=== PATIENT | male | born 2005 | race Caucasian/White ===

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

== ENCOUNTER 2023-06-17 10:31 | Emergency (ER) | payer MEDICAID, SELFPAY ==
[2023-06-17 10:32] VITALS: BP 125/100; PULSE 73; RESP 16; TEMP 36.1; O2SAT 98; BMI 37.7
[2023-06-17 11:05] VITALS: BMI 38.5
--- NOTE | 2023-06-17 11:05 | EX.ED.DYSGE1 ---
HPI History of Present Illness Chief Complaint: Neuro S/Sx Detail of Chief Complaint: Headache, vision change Informant: patient Narrative Narrative: Patient presents secondary to headache and left eye vision change. Patient states he has been having rather frequent headaches over the past month or so. He has had intermittent neuro symptoms associated with his headaches. This morning at work he developed a headache with loss of vision from his left eye that lasted about 25 minutes. Patient states that everything just looked blurry in the left eye and he could not make anything out. Symptoms are currently improving, but states he still has blurry vision over the upper portion of his left eye vision. He has no eye pain. No recent head injury. [facility] Medical History Asthma Internal derangement of left shoulder Left shoulder pain Seasonal allergies Home Medications cetirizine 10 mg tablet (24Hour Allergy) 10 mg PO DAILY PRN allergy symptoms 06/17/23 [History Last Taken Unknown] Allergy/AdvReac Type Severity Reaction Status Date / Time house dust Allergy unknown Verified 09/09/22 14:46 weed pollen Allergy unknown Verified 09/09/22 14:46 Family History Other Cancer Diabetes Heart disease Hypertension Surgical History H/O right knee surgery Hx of tympanostomy tubes Social History Smoking Status: Never smoker alcohol intake: never ROS ROS ED Constitutional Constitutional ED: Denies chills or fever(s) Eyes Eyes: Reports change in vision; Denies discharge from eye(s) ENT ENT ED: Denies discharge from eye(s), rhinorrhea or sore throat Cardiovascular Cardiovascular: Denies chest pain or palpitations Respiratory/Chest Respiratory/Chest: Denies cough or dyspnea Gastrointestinal Gastrointestinal: Denies abdominal pain, nausea or vomiting Musculoskeletal Musculoskeletal: Denies back pain or extremity pain Integumentary Denies Abrasions or rash Neurologic Neurologic: Reports headache(s); Denies weakness Psychiatric Psychiatric: Denies anxiety or depression Allergic/Immunologic Allergic/Immunologic ED: Denies lip swelling or urticaria EXAM Physical Exam Const Vital Signs: 06/17/23 10:32 Temperature 96.9 F L Temperature Source Temporal Pulse Rate 73 Respiratory Rate 16 Blood Pressure 125/100 H Blood Pressure Mean 108 Pulse Ox 98 Oxygen Delivery Method Room Air Positive well nourished and well developed General Appearance ED: well developed HEENT Reports moist mucous membranes Eyes PERRL and EOMs intact bilaterally Chest Wall inspection of chest normal and palpation of chest normal Resp normal respiratory effort and clear to auscultation bilaterally Cardio regular rate and regular rhythm GI non-tender Palpation: soft Extremity normal to inspection Neuro oriented x3 and no sensory deficits noted Motor Exam: strength 5/5 throughout Psych mental status grossly normal Skin no rashes or lesions noted MDM MDM MDM Narrative Medical decision making narrative: Patient given IV fluids and Toradol. Labwork obtained to evaluate for leukocytosis, anemia, and electrolyte derangement. CTA of the head and neck obtained to evaluate for abnormality including aneurysm History & Record Review Discussion w/independent historian: Patient Lab Data Attestation: I reviewed the patient's lab results. Labs: Laboratory Results - last 24 hr 06/17/23 11:30 WBC 8.2 RBC 4.56 L Hgb 13.9 Hct 39.5 L MCV 86.6 MCH 30.5 MCHC 35.2 RDW Std Deviation 36.7 RDW Coeff of Rita 11.6 Plt Count 199 MPV 9.8 Immature Gran % (Auto) 0.200 Neut % (Auto) 49.5 Lymph % (Auto) 32.0 [place] % (Auto) 8.8 Eos % (Auto) 8.3 H Baso % (Auto) 1.2 H Absolute Neuts (auto) 4.1 Absolute Lymphs (auto) 2.63 Nucleated RBC % 0 Sodium 139 Potassium 3.9 Chloride 109 H Carbon Dioxide 26.0 Anion Gap 4 L BUN 21 H Creatinine 0.90 Estim Creat Clear Calc 126.67 Est GFR (MDRD) Af Amer 138 Est GFR (MDRD) Non-Af 114 BUN/Creatinine Ratio 23.3 H Glucose 94 Calcium 8.9 Radiography Diagnostic Testing: Clinical Impression(s) from Imaging Studies Head/Neck CTA 06/17/23 11:45 IMPRESSION: 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 Electronically Signed: Dakotah Wallace MD at 12:17 EDT , Treatment and Re-Evaluation :: I feel patient's symptoms are most consistent with atypical migraine. As he did drive himself to the ER today he was given Toradol and IV fluids. CBC reveals normal white count 8.2 with a hemoglobin of 13.9. Normal differential. Chemistry studies are unremarkable. Glucose is normal at 94. CTA of the head and neck is obtained. 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 No intracranial abnormalities are noted. Specifically, no evidence of aneurysm. On repeat evaluation patient reports his headache is resolved. He still has only a few small spots of blurry vision, but overall vision is improving as well. Patient will be referred to neurology for follow-up as I do feel that this is migraine in origin. Return instructions provided Discharge Plan Triage Chief Complaint: Neuro S/Sx Other Complaint: Eye Problem ED Provider: Shivani Lopez Dx/Rx/DC Orders Clinical Impression: Migraine Instructions: Preventing Migraine Headaches ..., ED, Migraine (Classical) Prescriptions: No Action cetirizine [24Hour Allergy] 10 mg tablet 10 mg PO DAILY PRN (Reason: allergy symptoms) Primary Care Provider: Olu Lemon NP Referrals: Tyler Han MD [Non-Staff -Ordering Privileges] - 1-2 Weeks Olu Lemon NP, ASSOCIATE PROFESSOR OF MUSICOLOGY-C [Primary Care Provider] - Disposition Disposition: Home, Self Care
[2023-06-17] MEDS: 0.9% Normal Saline (1000mL) 1,000 ML 1000 ML IV (11:33)
[2023-06-17] MEDS: Ketorolac 30 MG/ML Syringe IV (11:33)
[2023-06-17 11:45] LABS: Absolute Lymphocyte Count 2.63 X10^3/uL (0.83-4.51); Absolute Neutrophil Count 4.1 X10^3/uL (2.0-7.7); Basophil% 1.2 % (0-1); Eosinophil# 0.68 X10^3/uL; Eosinophils% 8.3 % (0-5); Hematocrit 39.5 % (40-54); Hemoglobin 13.9 g/dL (13.0-16.5); Lymphocyte # 2.63 X10^3/ul (0.83-4.51); Mean Corp Hgb Conc 35.2 g/dL (32-36); Mean Corpuscular Hgb 30.5 pg (27.0-32.0); Mean Corpuscular Volume 86.6 fL (80-94); Mean Platelet Vol. 9.8 fl (6.2-12.0); Monocyte# 0.72 X10^3/uL; Monocyte% 8.8 % (0-10); NRBC Flagged by Analyzer 0 % (0-5); Neutrophil # 4.06 X10^3/uL (2.7-7.7); Neutrophil % 49.5 % (47-70); Platelet Count 199 K/mm3 (150-450); RBC Distribution Width CV 11.6 % (11.6-14.6); RBC Distribution Width SD 36.7 fl (35.1-43.9); Red Blood Count 4.56 M/mm3 (4.6-6.2); White Blood Count 8.2 K/mm3 (4.4-11.0)
--- NOTE | 2023-06-17 11:45 | CT_ITS ---
STUDY: CTA HEAD AND NECK WITH CONTRAST REASON FOR EXAM: Male, 18 years old. Headache, vision change RADIATION DOSAGE (If Supplied By Facility): CTDIvol = ( 30.04 ) mGy, DLP = ( 1746.58 ) mGycm TECHNIQUE: CT angiography was performed with a multi-detector CT scanner. Data acquisition was obtained from the skull base through the vertex following intravenous administration of IV 100mL [id number]-370. MIP images were reconstructed from the axial data set. Post-processing of the angiographic images was performed, with multiplanar reformation and 3D reconstruction. Individualized dose optimization techniques were used for this CT. COMPARISON: No relevant priors. FINDINGS: Normal bilateral petrous carotid arteries. Normal right cavernous carotid artery with a normal supraclinoid bifurcation. Normal left cavernous carotid artery with a normal supraclinoid bifurcation. Normal right A1 segments of the anterior cerebral artery. Normal left A1 segments of the anterior cerebral artery. Normal intact anterior communicating artery (ACOM). Normal bilateral A2 segments of the anterior cerebral arteries. Normal right M1 and M2 segments of the middle cerebral arteries, with a normal M1 bifurcation. Normal left M1 and M2 segments of the middle cerebral arteries, with a normal M1 bifurcation. Normal right posterior communicating artery (PCOM). Normal left posterior communicating artery (PCOM). Normal bilateral vertebral arteries. Normal basilar artery with a normal basilar bifurcation. The visualized bilateral superior cerebellar (SCA) arteries are normal. Normal bilateral P1, P2 and visualized P3 segments of the posterior cerebral arteries. There is no demonstrated aneurysm of the [place] of [place]. There is no demonstrated abnormality of the visualized brain. AORTIC ARCH: Right-sided aortic arch with the right sided descending thoracic aorta. 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 Normal origins of the brachiocephalic, left common carotid, and left subclavian arteries. RIGHT CAROTID ARTERIES: Normal right common carotid artery (CCA). Normal right common carotid bulb. Normal origin of the right internal carotid (ICA) artery without a hemodynamically significant stenosis. Normal visualized cervical portion of the right internal carotid artery. Normal origin of the right external carotid artery (ECA). LEFT CAROTID ARTERIES: Normal left common carotid artery (CCA). Normal left common carotid bulb. Normal origin of the left internal carotid (ICA) artery without a hemodynamically significant stenosis. Normal visualized cervical portion of the left internal carotid artery. Normal origin of the left external carotid artery (ECA). VERTEBRAL ARTERIES: There is enhancement within the bilateral vertebral arteries with a small left vertebral artery, and a dominant right vertebral artery. 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 Electronically Signed: Dakotah Wallace MD at 12:17 EDT ,
[2023-06-17 11:56] LABS: Anion Gap 4 (5-15); BUN 21 mg/dL (7-18); BUN/Creat Ratio 23.3 RATIO (10-20); Calcium,Total 8.9 mg/dL (8.5-10.1); Chloride 109 mmol/L (98-107); EST Glomerular Filtration Rate 114 mL/min (>60); Est Glom Filt Rate - Afr Amer 138 mL/min (>60); Estimated Creatinine Clearance 126.67 ml/min; Glucose 94 mg/dL (74-106); Potassium 3.9 mmol/L (3.5-5.1); Sodium Level 139 mmol/L (136-145)
[2023-06-17 13:03] VITALS: PULSE 86; O2SAT 99
== END 2023-06-17 13:07 | disposition home or self-care (01) ==
PROVIDERS: Emergency Provider Emergency Medicine; PCP Nurse Practitioner; Visit Provider Emergency Medicine
DX: G43.909 Migraine, unspecified, not intractable, without status migrainosus (principal)
CPT/HCPCS: 70496; 70498; 80048; 85025; 96361; 96374; 99283; J7030; Q9967; A4216

== ENCOUNTER 2023-06-20 21:54 | Emergency (ER) | payer MEDICAID, SELFPAY ==
[2023-06-20 21:55] VITALS: BP 131/74; PULSE 88; RESP 18; TEMP 36.6; O2SAT 97; BMI 37.0
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
--- NOTE | 2023-06-20 22:17 | ED.VIS.LOWEX ---
HPI History of Present Illness Chief Complaint: Lower Extremity Injury Detail of Chief Complaint: Since with twisting mechanism injury right knee. Informant: patient Occured/Mechanism Mechanism/Context: Yes other see comment below Comment: And mechanism of injury. [place] something pop/tear Onset/Context/Timing Onset: Hours (Prior to presentation) Context: Sudden Onset Timing: Continuous Quality of Pain: Dull and Aching Location: Medial right knee Current Severity: Mild Maximum Severity: Severe Worsened by: During Relieved by: Flexion extension Associated Symptoms Associated Symptoms: Negative for Parasthesia, Weakness or Loss of Funtion (Difficulty bearing weight.) Narrative Narrative: Is a 18-year-old male who underwent ACL and PCL repair by Dr. Jennifer Mosquera. He reports pain with weightbearing and movement. There is no history of direct trauma. The knee is not any more swollen than normal. States the swelling above the patella has been present since surgery. He has no other complaints. Tetanus Immunization: 5-10 years Prior similar symptoms: Yes Recent Illness/Hospitalization: No PFSH PFSH Medical History Asthma Internal derangement of left shoulder Left shoulder pain Seasonal allergies Home Medications cetirizine 10 mg tablet (24Hour Allergy) 10 mg PO DAILY PRN allergy symptoms 06/17/23 [History Last Taken Unknown] hydrocodone-acetaminophen 5-325mg 5mg-325mg 1 tab PO Q6H PRN PRN Pain 3 days #10 TABLETS 06/20/23 [Rx Last Taken Unknown] Allergy/AdvReac Type Severity Reaction Status Date / Time house dust Allergy unknown Verified 06/20/23 21:57 weed pollen Allergy unknown Verified 06/20/23 21:57 Family History Other Cancer Diabetes Heart disease Hypertension Surgical History H/O right knee surgery Hx of tympanostomy tubes Social History Smoking Status: Never smoker alcohol intake: never ROS ROS ED Constitutional Constitutional ED: Denies chills, fever(s), subjective, sweats or weight loss Musculoskeletal Musculoskeletal: Denies arthralgias, back pain, myalgias or neck pain Integumentary Denies rash Neurologic Neurologic: Denies paresthesias or weakness Endocrine Endocrinology: Denies polydipsia, polyphagia or polyuria Hematologic/Lymphatic Hematologic/Lymphatic: Denies easy bleeding or easy bruising EXAM Physical Exam Const Vital Signs: 06/20/23 21:55 Temperature 97.8 F Temperature Source Temporal Pulse Rate 88 Respiratory Rate 18 Blood Pressure 131/74 H Blood Pressure Mean 93 Pulse Ox 97 Oxygen Delivery Method Room Air Positive well nourished, well developed and obese General Appearance ED: well developed and NAD Nutritional Appearance: obese HEENT Reports moist mucous membranes normocephalic and atraumatic Eyes PERRL Eyes Narrative: Proximal muscles are intact. Neck full ROM and supple Chest Wall Negative for inspection of chest normal or palpation of chest normal Extremity full ROM; Negative for normal to inspection Extremity Narrative: To extend to 180 degrees and flex to 100 before having discomfort. There is swelling above the right patella. There is a scar noted. The scar is well-healed. Patella is not ballotable. There is no effusion. There is no laxity varus valgus stress testing. Sherri's test was negative. Modified Elver's test was negative. There is no pain the patient or fullness in the popliteal fossa. There is no joint line tenderness. Neuro oriented x3, CN's II-XII intact bilaterally and moves all extremities Sensorium / Orientation: alert Psych mental status grossly normal Skin no wounds Lesions: no lesions Rashes: no rashes MDM MDM MDM Narrative Medical decision making narrative: Was obtained per nurse protocol. Differential is medial collateral ligament strain, medial meniscus injury, ACL injury. Doubt ACL since there is no obvious effusion at this time. Radiography Chest X-Ray - ED: Read by ED Physician (Review x-ray of the knee reveals no acute process. Hardware noted secondary to probable prior ACL injury. There is no effusion. There is no fracture. There is no subluxation. This is independently reviewed interpreted by me at [id number]) Treatment and Re-Evaluation Narrative: Was informed to apply ice 6-10 times a day. Since he is diabetic was treated with opiate analgesia. He will follow-up with his orthopedic surgeon who is affiliated with [facility] Discharge Plan Triage Chief Complaint: Lower Extremity Injury ED Provider: Alex Jaquez Dx/Rx/DC Orders Clinical Impression: Other tear of medial meniscus, current injury, right knee, initial encounter, Pain of right knee after injury Instructions: ED Meniscal Injury Knee Poss Prescriptions: New hydrocodone-acetaminophen [hydrocodone-acetaminophen] 5-325 mg tablet 1 tab PO Q6H PRN PRN (Reason: Pain) 3 Days Qty: 10 0RF No Action cetirizine [24Hour Allergy] 10 mg tablet 10 mg PO DAILY PRN (Reason: allergy symptoms) Primary Care Provider: Care Physician,No Primary Referrals: Jennifer Mosquera DO [Non-Staff] - 5-7 Days Olu Lemon NP, [employer]INE [employer]PER[employer] [Non-Staff] - Disposition Disposition: Home, Self Care
== END 2023-06-20 22:42 | disposition home or self-care (01) ==
LOC: ED 22:32
PROVIDERS: Emergency Provider Emergency Medicine; Visit Provider Emergency Medicine
DX: S83.241A Other tear of medial meniscus, current injury, right knee, initial encounter (principal); E66.9 Obesity, unspecified; M25.561 Pain in right knee; X58.XXXA Exposure to other specified factors, initial encounter
CPT/HCPCS: 73564; 99282